=== PATIENT | female | born 1995 | race Caucasian/White ===

== ENCOUNTER 2020-07-27 08:59 | Emergency (ER) | payer OTHER ==
[2020-07-27 09:24] VITALS: TEMP 97.8; BMI 27.2
[2020-07-27] MEDS ORDERED: MECLIZINE HCL 12.5 MG TABLET PO ONE ×2 (09:38→10:13)
[2020-07-27] MEDS ORDERED: METOCLOPRAMIDE HCL 10 MG TABLET (FP) PO ONE ×2 (09:40→09:44)
[2020-07-27] MEDS ORDERED: MECLIZINE HCL 12.5 MG TABLET ONE ×2 (09:44→10:14)
[2020-07-27] MEDS ORDERED: METOCLOPRAMIDE HCL INJECTION 10 MG/2 ML VIAL IVPB ONE (10:26)
[2020-07-27] MEDS ORDERED: MECLIZINE HCL 25 MG TABLET (FP) PO ONE (10:27)
[2020-07-27] MEDS ORDERED: SODIUM CHLORIDE 0.9% 500 ML INFUS.BAG IV ONE (10:28)
[2020-07-27] MEDS ORDERED: METOCLOPRAMIDE HCL INJECTION 10 MG/2 ML VIAL ONE (10:33)
[2020-07-27] MEDS ORDERED: MECLIZINE HCL 25 MG TABLET (FP) ONE (11:08)
[2020-07-27 12:09] VITALS: BP 112/64; PULSE 77
== END 2020-07-27 12:10 | disposition home or self-care (01) ==
LOC: FER 08:59
PROC: 3E033GC Introduction of Other Therapeutic Substance into Peripheral Vein, Percutaneous Approach (ICD-10-PCS; principal; 2020-07-27)
DX: R42 Dizziness and giddiness (principal); R11.10 Vomiting, unspecified
CPT/HCPCS: 99284-25